=== PATIENT | female | born 1955 | race Hispanic/Latino ===

== ENCOUNTER 2019-03-08 06:35 | Day surgery (SDC) | payer OTHER, MEDICARE ==
[~2019-03-08] VITALS: Ht 165.1 cm; Wt 106.1 kg
[~2019-03-08 06:35] MED LIST: SODIUM CHLORIDE 0.9% 1000ML 1,000 ML IV ONE
--- NOTE | 2019-03-08 07:00 | NUR ---
NURSING UPON ARRIVAL TO UNIT PT BECAME DIAPHORETIC AND C/O FEELING BLOOD SUGAR IS VERY LOW. STAT SUGAR WAS CHECKED AND RESULTS WAS 69 AND ORDERS RECD AND HALF AMP OF D50 WAS GIVEN IV ORDERED WILL CONT TO MONITOR Addendum: 03/08/19 at 0740 by MAMADOU ZAIDI RN Amended: Links added.
[2019-03-08] MEDS ORDERED: DEXTROSE 50%-WATER 50 ML DISP.SYRIN IV ONE (07:11)
[2019-03-08 07:18] VITALS: BP 123/37
[2019-03-08 09:02] VITALS: BP 99/39
[2019-03-08 09:07] VITALS: BP 101/50
[2019-03-08 09:12] VITALS: BP 116/61
[2019-03-08 09:17] VITALS: BP 130/60
[2019-03-08 09:22] VITALS: BP 120/63
== END 2019-03-08 09:32 | disposition home or self-care (01) ==
LOC: ENDO 06:35 → DAH 06:35 → ENDO 09:32
PROVIDERS: ATTEND Internal Medicine
DX: K29.50 Unspecified chronic gastritis without bleeding (principal); K31.9 Disease of stomach and duodenum, unspecified; K44.9 Diaphragmatic hernia without obstruction or gangrene; K22.8 Other specified diseases of esophagus; R13.10 Dysphagia, unspecified; J45.909 Unspecified asthma, uncomplicated; E11.9 Type 2 diabetes mellitus without complications; I10 Essential (primary) hypertension; M81.0 Age-related osteoporosis without current pathological fracture; M19.90 Unspecified osteoarthritis, unspecified site; I25.10 Atherosclerotic heart disease of native coronary artery without angina pectoris; E78.2 Mixed hyperlipidemia; F32.9 Major depressive disorder, single episode, unspecified; F41.9 Anxiety disorder, unspecified; R00.1 Bradycardia, unspecified; Z86.73 Personal history of transient ischemic attack (TIA), and cerebral infarction without residual deficits; Z79.84 Long term (current) use of oral hypoglycemic drugs; Z79.899 Other long term (current) drug therapy; Z90.49 Acquired absence of other specified parts of digestive tract; Z88.1 Allergy status to other antibiotic agents; Z68.39 Body mass index [BMI] 39.0-39.9, adult
CPT/HCPCS: 43239; 82948 ×3; 93005; A4606; J7030; J7070

== ENCOUNTER → 2022-06-29 | Outpatient (CLI) | payer OTHER, MEDICARE ==
[~2022-06-29] MED LIST changes: +REGADENOSON 0.4 MG/5 ML PF SYG IVP SCH; -SODIUM CHLORIDE 0.9% 1000ML 1,000 ML IV ONE
== END | disposition home or self-care (01) ==
LOC: RAH 09:24
PROVIDERS: ATTEND Family Medicine
DX: I20.9 Angina pectoris, unspecified (principal); I12.9 Hypertensive chronic kidney disease with stage 1 through stage 4 chronic kidney disease, or unspecified chronic kidney disease
CPT/HCPCS: 78452; 96374; 93017; J2785; A9500 ×2

== ENCOUNTER → 2023-09-07 | Outpatient (CLI) | payer OTHER, MEDICARE ==
[2023-09-07 09:30] LABS: CREATININE 1.5 mg/dL (0.5-1.5)
== END | disposition home or self-care (01) ==
LOC: LAB 07:56
PROVIDERS: ATTEND Otolaryngology Plastic Surgery within the Head & Neck
DX: R43.0 Anosmia (principal)
CPT/HCPCS: 36415; 82565; 84520

== ENCOUNTER → 2023-09-08 | Outpatient (CLI) | payer OTHER, MEDICARE ==
[~2023-09-08] MED LIST changes: +IOHEXOL-350 50ML VIAL IV ONE; -REGADENOSON 0.4 MG/5 ML PF SYG IVP SCH
== END | disposition home or self-care (01) ==
LOC: RAH 13:24
PROVIDERS: ATTEND Otolaryngology Plastic Surgery within the Head & Neck
DX: R43.0 Anosmia (principal)
CPT/HCPCS: 70470; Q9967; 36415; 82565; 84520